=== PATIENT | female | born 1955 | race Caucasian/White ===

== ENCOUNTER → 2016-06-15 | Outpatient (CLI) | payer OTHER ==
[~2016-06-15] MED LIST: ACET-784 PO; ACET250T27 PO; AMOX-429 PO; ASCO-360 PO; ASPI81TA2 PO; BUSP10TA23 PO; CALC-866 PO; CIPR-278 PO; ERGO500050 PO; ESCI10TA PO; FAMO20 PO; FURO40 PO; GABA-531 PO; LEVO200 PO; LORA10TA7 PO; LORA1TAB3 PO; MULT-1192; MUPI22OI2 TP; TRAM50TA4 PO; VALS160T2 PO
[2016-06-15 12:10] VITALS: BP 138/84
== END | disposition home or self-care (01) ==
LOC: HBOWC 10:50
PROVIDERS: ATTEND Emergency Medicine
DX: E11.622 Type 2 diabetes mellitus with other skin ulcer (principal); L97.821 Non-pressure chronic ulcer of other part of left lower leg limited to breakdown of skin; L97.811 Non-pressure chronic ulcer of other part of right lower leg limited to breakdown of skin; I87.2 Venous insufficiency (chronic) (peripheral); I89.0 Lymphedema, not elsewhere classified; E66.01 Morbid (severe) obesity due to excess calories; B35.1 Tinea unguium; I50.20 Unspecified systolic (congestive) heart failure; Z86.14 Personal history of Methicillin resistant Staphylococcus aureus infection
CPT/HCPCS: 97597

== ENCOUNTER → 2016-06-29 | Outpatient (CLI) | payer OTHER ==
[2016-06-29 11:42] VITALS: BP 129/74
== END | disposition home or self-care (01) ==
LOC: HBOWC 10:53
PROVIDERS: ATTEND Emergency Medicine
DX: E11.622 Type 2 diabetes mellitus with other skin ulcer (principal); I87.2 Venous insufficiency (chronic) (peripheral); L97.821 Non-pressure chronic ulcer of other part of left lower leg limited to breakdown of skin; L97.811 Non-pressure chronic ulcer of other part of right lower leg limited to breakdown of skin; I89.0 Lymphedema, not elsewhere classified; E66.01 Morbid (severe) obesity due to excess calories; B35.1 Tinea unguium; I50.20 Unspecified systolic (congestive) heart failure; Z86.14 Personal history of Methicillin resistant Staphylococcus aureus infection
CPT/HCPCS: 97597

== ENCOUNTER → 2016-07-13 | Outpatient (CLI) | payer OTHER ==
[2016-07-13 12:06] VITALS: BP 122/68
== END | disposition home or self-care (01) ==
LOC: HBOWC 10:18
PROVIDERS: ATTEND Emergency Medicine
DX: E11.622 Type 2 diabetes mellitus with other skin ulcer (principal); I87.2 Venous insufficiency (chronic) (peripheral); L97.821 Non-pressure chronic ulcer of other part of left lower leg limited to breakdown of skin; L97.811 Non-pressure chronic ulcer of other part of right lower leg limited to breakdown of skin; I89.0 Lymphedema, not elsewhere classified; B35.1 Tinea unguium; E66.01 Morbid (severe) obesity due to excess calories; L03.90 Cellulitis, unspecified; B95.62 Methicillin resistant Staphylococcus aureus infection as the cause of diseases classified elsewhere; I50.9 Heart failure, unspecified
CPT/HCPCS: 11720; 97597

== ENCOUNTER → 2016-07-27 | Outpatient (CLI) | payer OTHER ==
[2016-07-27 10:47] VITALS: BP 144/88
== END | disposition home or self-care (01) ==
LOC: HBOWC 10:29
PROVIDERS: ATTEND Emergency Medicine
DX: E11.622 Type 2 diabetes mellitus with other skin ulcer (principal); L97.811 Non-pressure chronic ulcer of other part of right lower leg limited to breakdown of skin; I87.2 Venous insufficiency (chronic) (peripheral); I89.0 Lymphedema, not elsewhere classified; E66.01 Morbid (severe) obesity due to excess calories; I50.20 Unspecified systolic (congestive) heart failure; B35.1 Tinea unguium; Z86.14 Personal history of Methicillin resistant Staphylococcus aureus infection
CPT/HCPCS: 97597

== ENCOUNTER → 2016-08-08 | Outpatient (CLI) | payer OTHER ==
[~2016-08-08] MED LIST changes: +LIDOCAINE HCL 2% 5 ML JELLY TP ONE; +SODIUM HYPOCHLORITE 0.25% [HALF STRENGTH] 473 ML SOLUTION TP ONE
[2016-08-08 11:18] VITALS: BP 149/82
== END | disposition home or self-care (01) ==
LOC: HBOWC 10:45
PROVIDERS: ATTEND Emergency Medicine Undersea and Hyperbaric Medicine
DX: E11.622 Type 2 diabetes mellitus with other skin ulcer (principal); L97.811 Non-pressure chronic ulcer of other part of right lower leg limited to breakdown of skin; I87.2 Venous insufficiency (chronic) (peripheral); E66.01 Morbid (severe) obesity due to excess calories; I89.0 Lymphedema, not elsewhere classified; I48.91 Unspecified atrial fibrillation; I50.20 Unspecified systolic (congestive) heart failure; B35.1 Tinea unguium; Z86.14 Personal history of Methicillin resistant Staphylococcus aureus infection
CPT/HCPCS: 97597

== ENCOUNTER → 2016-08-21 | Outpatient (CLI) | payer OTHER ==
[~2016-08-21] MED LIST changes: -LIDOCAINE HCL 2% 5 ML JELLY TP ONE; -SODIUM HYPOCHLORITE 0.25% [HALF STRENGTH] 473 ML SOLUTION TP ONE
[2016-08-21 11:38] VITALS: BP 139/70
== END | disposition home or self-care (01) ==
LOC: HBOWC 11:08
PROVIDERS: ATTEND Emergency Medicine
DX: E11.622 Type 2 diabetes mellitus with other skin ulcer (principal); L97.821 Non-pressure chronic ulcer of other part of left lower leg limited to breakdown of skin; L97.811 Non-pressure chronic ulcer of other part of right lower leg limited to breakdown of skin; E66.01 Morbid (severe) obesity due to excess calories; I89.0 Lymphedema, not elsewhere classified; B35.1 Tinea unguium; I48.91 Unspecified atrial fibrillation; I50.9 Heart failure, unspecified; Z86.14 Personal history of Methicillin resistant Staphylococcus aureus infection
CPT/HCPCS: 97597

== ENCOUNTER → 2016-09-04 | Outpatient (CLI) | payer OTHER ==
[2016-09-04 11:09] VITALS: BP 126/74
== END | disposition home or self-care (01) ==
LOC: HBOWC 11:09
PROVIDERS: ATTEND Emergency Medicine
DX: E11.622 Type 2 diabetes mellitus with other skin ulcer (principal); I87.2 Venous insufficiency (chronic) (peripheral); L97.821 Non-pressure chronic ulcer of other part of left lower leg limited to breakdown of skin; L97.811 Non-pressure chronic ulcer of other part of right lower leg limited to breakdown of skin; I89.0 Lymphedema, not elsewhere classified; E66.01 Morbid (severe) obesity due to excess calories; C80.1 Malignant (primary) neoplasm, unspecified; B35.1 Tinea unguium; B95.62 Methicillin resistant Staphylococcus aureus infection as the cause of diseases classified elsewhere; I50.9 Heart failure, unspecified; I48.91 Unspecified atrial fibrillation
CPT/HCPCS: 97597

== ENCOUNTER → 2016-09-21 | Outpatient (CLI) | payer OTHER ==
[~2016-09-21] MED LIST changes: -AMOX-429 PO; +LIDOCAINE HCL 4% 50 ML SOLUTION TP ONE; +TRIAMCINOLONE 0.1% 15 GM OINTMENT TP ONE
[2016-09-21 10:38] VITALS: BP 140/80
== END | disposition home or self-care (01) ==
LOC: HBOWC 09:37
PROVIDERS: ATTEND Emergency Medicine
DX: L97.821 Non-pressure chronic ulcer of other part of left lower leg limited to breakdown of skin (principal); L97.811 Non-pressure chronic ulcer of other part of right lower leg limited to breakdown of skin; I87.2 Venous insufficiency (chronic) (peripheral); I89.0 Lymphedema, not elsewhere classified; E66.01 Morbid (severe) obesity due to excess calories; B35.1 Tinea unguium; I48.91 Unspecified atrial fibrillation; I50.20 Unspecified systolic (congestive) heart failure; Z85.828 Personal history of other malignant neoplasm of skin; Z86.14 Personal history of Methicillin resistant Staphylococcus aureus infection; Z85.43 Personal history of malignant neoplasm of ovary
CPT/HCPCS: 97597; 97598

== ENCOUNTER → 2016-10-05 | Outpatient (CLI) | payer OTHER ==
[~2016-10-05] MED LIST changes: -CIPR-278 PO; -LIDOCAINE HCL 4% 50 ML SOLUTION TP ONE; -TRIAMCINOLONE 0.1% 15 GM OINTMENT TP ONE
[2016-10-05 11:45] VITALS: BP 120/65
== END | disposition home or self-care (01) ==
LOC: HBOWC 11:05
PROVIDERS: ATTEND Emergency Medicine
DX: I87.2 Venous insufficiency (chronic) (peripheral) (principal); E11.622 Type 2 diabetes mellitus with other skin ulcer; L97.821 Non-pressure chronic ulcer of other part of left lower leg limited to breakdown of skin; L97.811 Non-pressure chronic ulcer of other part of right lower leg limited to breakdown of skin; E66.01 Morbid (severe) obesity due to excess calories; I89.0 Lymphedema, not elsewhere classified; B35.1 Tinea unguium; I50.9 Heart failure, unspecified; Z85.828 Personal history of other malignant neoplasm of skin; Z86.14 Personal history of Methicillin resistant Staphylococcus aureus infection; Z85.43 Personal history of malignant neoplasm of ovary
CPT/HCPCS: 11720; 97597

== ENCOUNTER → 2016-10-19 | Outpatient (CLI) | payer OTHER ==
[~2016-10-19] MED LIST changes: +CIPR-278 PO
[2016-10-19 11:22] VITALS: BP 130/78
== END | disposition home or self-care (01) ==
LOC: HBOWC 11:02
PROVIDERS: ATTEND Emergency Medicine
DX: E11.622 Type 2 diabetes mellitus with other skin ulcer (principal); L97.821 Non-pressure chronic ulcer of other part of left lower leg limited to breakdown of skin; L97.811 Non-pressure chronic ulcer of other part of right lower leg limited to breakdown of skin; I87.2 Venous insufficiency (chronic) (peripheral); E66.01 Morbid (severe) obesity due to excess calories; I89.0 Lymphedema, not elsewhere classified; R06.00 Dyspnea, unspecified; R60.9 Edema, unspecified; B35.1 Tinea unguium; I50.9 Heart failure, unspecified; I48.91 Unspecified atrial fibrillation; Z85.43 Personal history of malignant neoplasm of ovary; Z86.14 Personal history of Methicillin resistant Staphylococcus aureus infection
CPT/HCPCS: 97597

== ENCOUNTER → 2016-11-06 | Outpatient (CLI) | payer OTHER ==
[2016-11-06 11:51] VITALS: BP 126/60
== END | disposition home or self-care (01) ==
LOC: HBOWC 10:55
PROVIDERS: ATTEND Emergency Medicine
DX: E11.622 Type 2 diabetes mellitus with other skin ulcer (principal); L97.811 Non-pressure chronic ulcer of other part of right lower leg limited to breakdown of skin; I87.2 Venous insufficiency (chronic) (peripheral); I89.0 Lymphedema, not elsewhere classified; E66.01 Morbid (severe) obesity due to excess calories; I50.20 Unspecified systolic (congestive) heart failure; Z85.828 Personal history of other malignant neoplasm of skin; Z86.14 Personal history of Methicillin resistant Staphylococcus aureus infection
CPT/HCPCS: 97597; 97598

== ENCOUNTER → 2016-11-20 | Outpatient (CLI) | payer OTHER ==
[2016-11-20 12:47] VITALS: BP 140/90
== END | disposition home or self-care (01) ==
LOC: HBOWC 10:57
PROVIDERS: ATTEND Emergency Medicine
DX: E11.622 Type 2 diabetes mellitus with other skin ulcer (principal); L97.811 Non-pressure chronic ulcer of other part of right lower leg limited to breakdown of skin; I87.2 Venous insufficiency (chronic) (peripheral); E66.01 Morbid (severe) obesity due to excess calories; I89.0 Lymphedema, not elsewhere classified; I48.91 Unspecified atrial fibrillation; I50.20 Unspecified systolic (congestive) heart failure; Z85.43 Personal history of malignant neoplasm of ovary; Z86.14 Personal history of Methicillin resistant Staphylococcus aureus infection; Z85.828 Personal history of other malignant neoplasm of skin
CPT/HCPCS: 97597; 97598

== ENCOUNTER → 2016-12-04 | Outpatient (CLI) | payer OTHER ==
[~2016-12-04] MED LIST changes: +AMOX-429 PO; +CEPH500 PO; +CLIN300C3 PO; +DICL250 PO; +DOXY100C PO; +DOXY50CA2 PO; +ELIM560C TP; +ESCI5SOL PO; +PENI500T2 PO; +PRED10 PO; +RIFA300C4 PO; +TRAM150C25 PO
[2016-12-04 11:25] VITALS: BP 137/82
== END | disposition home or self-care (01) ==
LOC: HBOWC 10:46
PROVIDERS: ATTEND Emergency Medicine
DX: E11.622 Type 2 diabetes mellitus with other skin ulcer (principal); L97.811 Non-pressure chronic ulcer of other part of right lower leg limited to breakdown of skin; I87.2 Venous insufficiency (chronic) (peripheral); E66.01 Morbid (severe) obesity due to excess calories; I50.20 Unspecified systolic (congestive) heart failure; B35.1 Tinea unguium; I48.91 Unspecified atrial fibrillation; I89.0 Lymphedema, not elsewhere classified; B95.62 Methicillin resistant Staphylococcus aureus infection as the cause of diseases classified elsewhere; Z85.43 Personal history of malignant neoplasm of ovary; Z85.828 Personal history of other malignant neoplasm of skin
CPT/HCPCS: 97597; 97598

== ENCOUNTER → 2016-12-18 | Outpatient (CLI) | payer OTHER ==
[~2016-12-18] MED LIST changes: -AMOX-429 PO; -CEPH500 PO; -CLIN300C3 PO; -DICL250 PO; -DOXY100C PO; -DOXY50CA2 PO; -ELIM560C TP; -ESCI5SOL PO; +LIDOCAINE HCL 4% 50 ML SOLUTION TP ONE; -PENI500T2 PO; -PRED10 PO; -RIFA300C4 PO; -TRAM150C25 PO
[2016-12-18 12:13] VITALS: BP 123/72
== END | disposition home or self-care (01) ==
LOC: HBOWC 10:43
PROVIDERS: ATTEND Emergency Medicine
DX: E11.622 Type 2 diabetes mellitus with other skin ulcer (principal); L97.811 Non-pressure chronic ulcer of other part of right lower leg limited to breakdown of skin; I89.0 Lymphedema, not elsewhere classified; B95.62 Methicillin resistant Staphylococcus aureus infection as the cause of diseases classified elsewhere; E66.01 Morbid (severe) obesity due to excess calories; B35.1 Tinea unguium; I48.91 Unspecified atrial fibrillation; I87.2 Venous insufficiency (chronic) (peripheral); I50.20 Unspecified systolic (congestive) heart failure; Z85.43 Personal history of malignant neoplasm of ovary; Z85.828 Personal history of other malignant neoplasm of skin
CPT/HCPCS: 97597; 97598

== ENCOUNTER → 2017-01-01 | Outpatient (CLI) | payer OTHER ==
[~2017-01-01] MED LIST changes: -LIDOCAINE HCL 4% 50 ML SOLUTION TP ONE; +MEGE40 PO
[2017-01-01 11:28] VITALS: BP 148/76
== END | disposition home or self-care (01) ==
LOC: HBOWC 10:50
PROVIDERS: ATTEND Emergency Medicine
DX: E11.622 Type 2 diabetes mellitus with other skin ulcer (principal); L97.811 Non-pressure chronic ulcer of other part of right lower leg limited to breakdown of skin; I87.2 Venous insufficiency (chronic) (peripheral); I89.0 Lymphedema, not elsewhere classified; B95.62 Methicillin resistant Staphylococcus aureus infection as the cause of diseases classified elsewhere; E66.01 Morbid (severe) obesity due to excess calories; B35.1 Tinea unguium; I48.91 Unspecified atrial fibrillation; I50.20 Unspecified systolic (congestive) heart failure; Z85.43 Personal history of malignant neoplasm of ovary; Z85.828 Personal history of other malignant neoplasm of skin
CPT/HCPCS: 97597; 97598

== ENCOUNTER → 2017-01-16 | Outpatient (CLI) | payer OTHER ==
[~2017-01-16] MED LIST changes: +MERO500I IV
[2017-01-16 11:13] VITALS: BP 137/73
== END | disposition home or self-care (01) ==
LOC: HBOWC 10:45
PROVIDERS: ATTEND Emergency Medicine
DX: E11.622 Type 2 diabetes mellitus with other skin ulcer (principal); L97.811 Non-pressure chronic ulcer of other part of right lower leg limited to breakdown of skin; B96.5 Pseudomonas (aeruginosa) (mallei) (pseudomallei) as the cause of diseases classified elsewhere; I87.2 Venous insufficiency (chronic) (peripheral); I89.0 Lymphedema, not elsewhere classified; E66.01 Morbid (severe) obesity due to excess calories; B35.1 Tinea unguium; I48.91 Unspecified atrial fibrillation; I50.20 Unspecified systolic (congestive) heart failure; Z68.1 Body mass index [BMI] 19.9 or less, adult; Z85.828 Personal history of other malignant neoplasm of skin; Z86.14 Personal history of Methicillin resistant Staphylococcus aureus infection; Z85.43 Personal history of malignant neoplasm of ovary
CPT/HCPCS: 97597; 97598

== ENCOUNTER → 2017-01-23 | Outpatient (CLI) | payer OTHER ==
[~2017-01-23] MED LIST changes: +HEPARIN SODIUM 1000 UNITS/NS 500 ML ONE
== END | disposition home or self-care (01) ==
LOC: RADMN 11:22
PROVIDERS: ATTEND Emergency Medicine
DX: Z45.2 Encounter for adjustment and management of vascular access device (principal); Z79.2 Long term (current) use of antibiotics
CPT/HCPCS: 36245; 36569; 76937; J1644

== ENCOUNTER 2017-03-04 13:54 | Emergency (ER) | payer OTHER ==
[~2017-03-04] VITALS: Ht 152.4 cm; Wt 154.0 kg
[~2017-03-04 13:54] MED LIST changes: -ASPI81TA2 PO; +ASPI81TA39 PO; -CIPR-278 PO; -HEPARIN SODIUM 1000 UNITS/NS 500 ML ONE; -MUPI22OI2 TP
[2017-03-04 19:02] VITALS: BP 117/60
== END 2017-03-04 20:19 | disposition home or self-care (01) ==
LOC: EMS 13:56
DX: S00.31XA Abrasion of nose, initial encounter (principal); S29.9XXA Unspecified injury of thorax, initial encounter; S50.311A Abrasion of right elbow, initial encounter; M79.601 Pain in right arm; Z88.1 Allergy status to other antibiotic agents; W01.10XA Fall on same level from slipping, tripping and stumbling with subsequent striking against unspecified object, initial encounter; Y93.89 Activity, other specified; Y92.89 Other specified places as the place of occurrence of the external cause; Y99.8 Other external cause status
CPT/HCPCS: 70450; 99284